=== PATIENT | male | born 1945 | race Caucasian/White ===

== ENCOUNTER → 2017-04-05 | Outpatient (CLI) | payer MEDICARE, BC ==
--- NOTE | 2017-04-05 14:04 | RADRPT ---
PROCEDURE: XR AP pelvis / bilateral hips. CLINICAL INDICATION: Hip pain TECHNIQUE: AP pelvis/AP and lateral right and left hip views available for review. COMPARISON: No prior studies are available for comparison. FINDINGS: There are bilateral total hip replacements. There is normal mineralization, architecture and alignment. There is no evidence of loosening of th e prosthesis. There is no evidence of hardware failure. No fractures, dislocation or osseous lesions are identified. The joints are unremarkable. There are normal soft tissues. IMPRESSION: Bilateral total hip replacements. Otherwise unremarkable examination. RPTAT: [facility] .Sumit Chase MD, MD Date Time Electronically viewed and signed by .Sumit Chase MD, on 04/05/2017 14:03 .B/
== END | disposition home or self-care (01) ==
LOC: HKI 08:56
PROVIDERS: ATTEND Orthopaedic Surgery
DX: M25.562 Pain in left knee (principal); T84.091A Other mechanical complication of internal left hip prosthesis, initial encounter; Z96.643 Presence of artificial hip joint, bilateral
CPT/HCPCS: 73523; G0463

== ENCOUNTER → 2017-04-11 | Outpatient (CLI) | payer MEDICARE, BC ==
--- NOTE | 2017-04-11 15:47 | RADRPT ---
PROCEDURE: Three-phase bone scan study CLINICAL INDICATION: 71 -year-old patient with bilateral hip replacements, complaining of left hip pain. TECHNIQUE: Following the intravenous injection of 26.1 mCi of Tc-99m MDP, a three-phase bone scan study of the hips bilaterally was obtained. Additional planar spot images of the lower abdomen and k nees bilaterally were obtained. COMPARISON: No prior bone scan studies. X-ray of the hips dated April 05, 2017. FINDINGS: Blood flow phase of the study demonstrates symmetrical distribution of activity in the hips bilatera lly. Blood pooling images reveal symmetrical distribution of uptake in both hips. Delayed images of both hips demonstrate evidence of a bilateral hip replacement with mildly increase d activity along the greater trochanter of the left hip. Spot images of the lower abdomen demonstrate numerous areas of mildly increased activity in the thor acic and lumbar spine, which favor degenerative disease. Spot views of both knees do not reveal abnormal areas of increased tracer uptake. IMPRESSION: 1. Evidence of the left hip replacement with mildly increased activity noted along the greater troc hanter of the left hip; prosthesis loosening cannot be ruled out. 2. Evidence of a right hip replacement with likely postsurgical changes. 3. Likely degenerative changes of the lower thoracic and lumbar spine. 4. No other abnormal areas of increased uptake in the obtained limited views . RPTAT: HH .Mary Ojeda MD, Date Time Electronically viewed and signed by .Mary Ojeda MD, on 04/11/2017 15:46 .L/
== END | disposition home or self-care (01) ==
LOC: NUC 08:49
PROVIDERS: ATTEND Orthopaedic Surgery
DX: M25.552 Pain in left hip (principal); Z96.643 Presence of artificial hip joint, bilateral
CPT/HCPCS: 78315; A9503